=== PATIENT | male | born 1985 ===

== ENCOUNTER 2023-12-19 12:48 | Outpatient (CLI) | payer OTHER ==
--- NOTE | 2023-12-19 13:47 | MRI Report ---
Knee RT WO CLINICAL INFORMATION: 38 years of age, Male, RIGHT KNEE PAIN. COMPARISON: None Technique: Multisequence, multiplanar MRI of the right knee was performed without intravenous contras t. FINDINGS: Menisci: The medial and lateral menisci, including the roots, are intact. Cruciate ligaments: The anterior and posterior cruciate ligaments are intact. MCL/LCL: The MCL is unremarkable. The biceps femoris tendon is unremarkable. The fibular collateral ligament is unremarkable. The iliotibial band is intact. The popliteus muscle and tendon also appear intact. Extensor mechanism: The quadricep tendon is unremarkable. The patella tendon is unremarkable. Mild reese prapatellar fat pad edema, raising concern for patellar maltracking. Patellofemoral joint: Alignment within the patellofemoral joint is normal. The patellofemoral ligame nts are intact. Low-grade chondral irregularity in the lateral patellar facet. There is mild chondral thinning in the medial patellar facet. Cartilage of the trochlea is unremarkable. Cartilage and bone: Cartilage of the medial and lateral compartment are well maintained. No marrow ed dee dee. No acute fracture. Miscellaneous: No significant joint effusion. No popliteal cyst. No intra-articular bodies are ident ified. Normal muscle signal intensity and morphology. No vascular anomaly. Mild tendinosis of the chiquita imembranosus. IMPRESSION: 1.Mild chondrosis of the patellofemoral compartment. 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 Reviewed by: Radha Arellano MD on 12/19/2023 1:46 PM PDT Approved by: Radha Arellano MD on 12/19/2023 1:46 PM PDT Station ID: [id number]
== END 2023-12-19 12:49 | disposition home or self-care (01) ==
LOC: DI 12:48
PROVIDERS: ATTEND Nurse Practitioner Family
DX: M25.561 Pain in right knee (principal); M94.8X6 Other specified disorders of cartilage, lower leg